=== PATIENT | female | born 1985 | race Caucasian/White ===

== ENCOUNTER 2017-05-28 09:40 | Emergency (ER) | payer OTHER ==
[2017-05-28 10:00] VITALS: BP 125/74; PULSE 61; TEMP 98; BMI 21.9
[2017-05-28] MEDS ORDERED: KETOROLAC TROMETHAMINE 60 MG/2 ML VIAL ONE (10:39)
[2017-05-28] MEDS ORDERED: KETOROLAC TROMETHAMINE 60 MG/2 ML VIAL IM ONE (10:42)
--- NOTE | 2017-05-28 10:46 | PDOC ---
History of Present Illness - General Chief Complaint: Injury Stated Complaint: INJURY, FALL Time Seen by Provider: 05/28/17 10:21 History Source: Patient Exam Limitations: No Limitations - History of Present Illness Initial Comments: 05/28/17 10:42 Patient states slipped and fell last night landing on right shoulder and back causing a whiplash type injury to her neck. Patient complaints of pain, and spasm to upper back and right and left side of neck. Also twisted right ankle with complaints of pain and swelling to the lateral aspect. Occurred: reports: yesterday Pain Location: reports: back, lower extremity (right ankle), neck Modifying Factors: improves with: cold therapy Past History - Travel Traveled outside of the country in the last 30 days: No Close contact w/someone who was outside of country & ill: No - Past Medical History Allergies/Adverse Reactions: Allergies Allergy/AdvReac Type Severity Reaction Status Date / Time No Known Allergies Allergy Verified 05/28/17 09:55 Home Medications: Ambulatory Orders Cyclobenzaprine HCl 10 mg PO Q8H PRN #14 tablet 05/28/17 Naproxen [Naprosyn -] 500 mg PO BID #20 tablet 05/28/17 COPD: No Other medical history: DENIES. - Suicide/Smoking/Psychosocial Hx Smoking History: Never smoked Trauma Specific PMHX - Complaint Specific PMHX Back Injury: Yes Neck Injury: Yes Review of Systems - Review of Systems Able to Perform ROS?: Yes Is the patient limited Frisian proficient: Yes Constitutional: Yes: Symptoms Reported, See HPI, Malaise HEENTM: No: Symptoms Reported Respiratory: No: Symptoms reported Musculoskeletal: Yes: Symptoms Reported, See HPI, Back Pain, Muscle Pain, Neck Pain Integumentary: Yes: Symptoms Reported Neurological: Yes: Symptoms reported, See HPI, Headache All Other Systems: Reviewed and Negative *Physical Exam - Vital Signs Last Vital Signs Temp Pulse Resp BP Pulse Ox 98 F 61 19 125/74 100 05/28/17 09:55 05/28/17 09:55 05/28/17 09:55 05/28/17 09:55 05/28/17 09:55 - Physical Exam General Appearance: Yes: Nourished, Appropriately Dressed, Apparent Distress, Mild Distress HEENT: positive: ILSA, Normal ENT Inspection, TMs Normal, Pharynx Normal Neck: positive: Tender, Supple Respiratory/Chest: positive: Lungs Clear Musculoskeletal: positive: Normal Inspection, Muscle Spasm (probable spasm noted to the paravertebral spinous muscles worse on the left than the right at sternocleidomastoid. Reproduced pain at pressure points of occiput primarily on the left side and extends into insertion of upper trapezius. Also has radiating pain down paravertebral spinous musculature. Has no true spine tenderness, crepitus or step-offs. No evidence of bony injury.). negative: CVA Tenderness Extremity: positive: Normal Capillary Refill, Normal Inspection, Tender (has mild point tenderness to the lateral malleolus however not significantly swollen or ecchymotic. Range of motion is intact. 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 Also whiplash injury will treat with cyclobenzaprine and NSAIDs. *DC/Admit/Observation/Transfer Diagnosis at time of Disposition: Whiplash injuries Qualifiers: Encounter type: initial encounter Qualified Code(s): S13.4XXA - Sprain of ligaments of cervical spine, initial encounter Right ankle sprain Qualifiers: Encounter type: initial encounter Involved ligament of ankle: unspecified ligament Qualified Code(s): S93.401A - Sprain of unspecified ligament of right ankle, initial encounter - Discharge Dispostion Disposition: HOME Condition at time of disposition: Stable Admit: No - Referrals Referrals: Ariela Mcghee [Primary Care Provider] - - Patient Instructions Printed Discharge Instructions: DI for Ankle Sprain, DI for Whiplash Additional Instructions: Rest, no heavy lifting or exercise until pain is resolved Hot soaks to neck and low back as often as possible/hot showers or Jacuzzis No massage or therapy until spasm is gone Continue ibuprofen 2-200 mg tablets every 6 hours for the next 3 days then as needed for pain and swelling Cyclobenzaprine 1-10mg every 8 hours as needed for spasm If not significant improvement within 24 hours with medication and rest regime, followup with private physician for change in medications and /or therapy. - Post Discharge Activity
== END 2017-05-28 11:30 | disposition home or self-care (01) ==
LOC: JERFT 09:40
PROC: 3E0233Z Introduction of Anti-inflammatory into Muscle, Percutaneous Approach (ICD-10-PCS; principal; 2017-05-28)
DX: S16.1XXA Strain of muscle, fascia and tendon at neck level, initial encounter (principal); S93.401A Sprain of unspecified ligament of right ankle, initial encounter; W01.0XXA Fall on same level from slipping, tripping and stumbling without subsequent striking against object, initial encounter; Y93.89 Activity, other specified; Y92.89 Other specified places as the place of occurrence of the external cause; Y99.8 Other external cause status
CPT/HCPCS: 73610-TC-RT-FY; 96372; 99281-25